=== PATIENT | male | born 1945 | race Two or more races ===

== ENCOUNTER 2020-05-20 23:05 | Inpatient (IN) | payer OTHER ==
[~2020-05-20] VITALS: Ht 170.2 cm; Wt 108.0 kg
[~2020-05-20 23:05] MED LIST: AMLODIPINE BESY10 MG PO; ASPIR-LOW81 MG PO; GLUCOPHAGE500 MG PO; HYDROCHLOROTHIA25 MG PO; LIPITOR40 MG PO; METOPROLOL SUCC25 MG PO; OMEPRAZOLE20 M1 PO; ZESTRIL40 MG PO
[2020-05-20] MEDS ORDERED: PREDNISONE20 MG PO (23:35)
--- NOTE | 2020-05-21 02:30 | NUR ---
0205 PATIENT ARRIVED VIA STRETCHER WITH 2 CORRECTIONAL OFFICERS. PATIENT TRANSFERED TO THE BED WITH MINIMAL ASSISTANCE. RESTRAINTS RELEASED TO PLACE PATIENT IN GOWN. 5 POINT RESTRAINTS REPLACED. PATIENT ON 10L OXYMASK. VS STABLE. O2 SAT 96%. PATIENT DENIES FEELING SOB. SCHEDULED MEDS PROVIDED. IV ABX FINISHED. MAG STARTED PER ORDER, IV FLUIDS INFUSING. IV SITES WNL X2. PATIENT PROVIDED WITH SANITARY ITEMS PER REQUEST. DENIES NEED TO VOID AT THIS TIME. TITRATED TO 6L OXYMASK. PATIENT TOLERATED WELL. CALL LIGHT IN HAND. ALLOWED PATIENT TO REST.
--- NOTE | 2020-05-21 03:29 | NUR ---
PT UP TO BEDSIDE TO VOID 150ML YELLOW URINE. ASSISTED WITH REPOSITIONING IN BED. PERRY ACTIVITY WELL, HR REMAINED 80'S AND SPO2 REMAINED 95% ON 6L/OXYMASK. DENIES PAIN/SOB OR FURTHER NEEDS, CALL LIGHT IN HAND.
--- NOTE | 2020-05-21 04:15 | NUR ---
PATIENT UP TO BEDSIDE TO USE URNAL. PATIENT REMOVED OXYMASK AND DESAT TO LOW 80'S ON ROOM AIR WITH ACTIVITY. PATIENT BACK TO BED. PLACED ON 6L NC AND RECOVERED QUICKLY. PATIENT DENIED FEELING SOB. NO COUGHING NOTED. IV FLUIDS PER ORDER, SITE WNL. PATIENT DENIES FURTHER NEEDS. CALL LIGHT IN REACH.
--- NOTE | 2020-05-21 05:00 | NUR ---
MORNING LABS DRAWN. PATIENT BACK TO OXYMASK 8L WHILE SLEEPING. CALL LIGHT IN REACH.
--- NOTE | 2020-05-21 08:24 | NUR ---
PT AWAKE AND ALERT X4, DENIES PAIN, NAUSEA, AND SOB. PT VITALS ARE WNL. IV SITE IN LEFT WRIST IS INTACT, NO REDNESS OR SWELLING, FLUIDS INFUSE EASILY. IV SITE IN RT AC ACCIDENTALLY PULLED, PT NOT BLEEDING, TIP OF CATH IS INTACT. PT GIVEN CLEAR LIQUID TRAY FOR BREAKFAST. PT DENIES ANY NEEDS AT THIS TIME.
--- NOTE | 2020-05-21 08:31 | NUR ---
PT PLACED ON 5L O2 VIA NASAL CANULA, FROM OXYMASK, FOR EATING BREAKFAST.
[2020-05-21] MEDS ORDERED: COREG6.25 MG PO (09:35)
[2020-05-21] MEDS ORDERED: COZAAR50 MG PO (09:36)
[2020-05-21] MEDS ORDERED: FLOMAX0.4 MG PO (09:37)
--- NOTE | 2020-05-21 10:58 | EKG ---
[facility] [address] [place], [place] [address] Signed Sinus tachycardia with premature atrial complexes Otherwise normal ECG No previous ECGs available Confirmed by MICKEY MCGOVERN DO ([id number]) on 05/21/2020 10:58:16 AM Electronically Signed By: MICKEY MCGOVERN DO 05/21/20 1058 PATIENT NAME: CASSIA GRIJALVA Electrocardiogram DATE OF : 45 PHYSICIAN: MICKEY MCGOVERN DO REPORT #: [id number] REPORT IS CONFIDENTIAL AND NOT TO BE RELEASED WITHOUT AUTHORIZATION
--- NOTE | 2020-05-21 11:50 | NUR ---
PT SWITCHED TO 6L NC FROM 6L OXYMASK FOR LUNCH. PT HAS GOOD APPITITE, DENIES NAUSEA. PT DENIES PAIN AND SOB. PT REPOSITIONED SELF UP IN BED TO EAT MEAL. PT IS ALERT AND ORIENTED X4, COOPERATIVE. CORRECTIONAL RESTRAINTS ASSESSED FOR PT SAFETY AND COMFORT.
--- NOTE | 2020-05-21 12:05 | NUR ---
IV SITE IN LEFT WRIST PAINFUL WITH FLUSH, NO REDNESS OR SWELLING NOTED, DC USE OF THIS SITE AT THIS TIME.
--- NOTE | 2020-05-21 13:35 | NUR ---
PT UP TO THE CHAIR WITH STAND BY ASSIST FOR CORD MANAGEMENT. PT HAS CORRECTIONAL [address], SKIN ASSESSED FOR PT SAFETY AND COMFORT. SKIN INTACT. PT PERRY ACTIVITY WELL, O2 SATS REMAIN AT 89% OR GREATER WITH 5L NC O2 IN PLACE. PT IS ALERT AND ORIENTED X4, VERY HARD OF HEARING. PT HAS CALL LIGHT WITHIN REACH. PT DENIES PAIN, NAUSEA, AND SOB.
--- NOTE | 2020-05-21 15:29 | NUR ---
Medications reconciled with several discrepancies corrected
--- NOTE | 2020-05-21 15:41 | NUR ---
PT REMAINS UP IN CHAIR, O2 SAT IS 91% WITH OXYMASK AT 6L O2. RESP EVEN AND UNLABORED, PT IN NO VISABLE DISTRESS.
--- NOTE | 2020-05-21 16:35 | NUR ---
PT ONE PERSON ASSIST UP FROM CHAIR TO STAND TO VOID, THEN PT ASSISTED BACK TO BED. IV SITE IS INTACT, NO REDNESS OR SWELLING NOTED, FLUID INFUSE EASILY. PT VITALS ARE WNL. OXYMASK IS IN PLACE WITH 6L 02 FLOW. PT DENIES PAIN, NAUSEA, AND SOB. CALL LIGHT IS WITHIN REACH.
--- NOTE | 2020-05-21 17:30 | NUR ---
DINNER DELIVERED TO PT. PT REPOSITIONED UP IN BED, CORRECTIONAL RESTRAINTS ASSESSED FOR PT SAFETY AND COMFORT, SKIN IS INTACT. IV SITE IS INTACT, PT DENIES PAIN AT THE SITE, FLUIDS INFUSE EASILY. PT O2 CHANGED TO 5L VIA NC FROM OXYMASK FOR DINNER TIME.
--- NOTE | 2020-05-21 19:30 | NUR ---
SHIFT REPORT RECEIVED. PATIENT RESTING IN BED WATCHING TV. O2 SATS 92% ON 8L OXYMASK. CALL LIGHT IN REACH.
--- NOTE | 2020-05-21 21:00 | NUR ---
EVENING MEDS PROVIDED PER ORDER. PATIENT REPORTS FEELING WEAK BUT NOT SOB. NO PAIN. ENSURE PROVIDED FOR PROTEIN. PATIENT'S BLOOD GLUCOSE DID NOT REQUIRE COVERAGE. ASSISTED PATIENT TO STAND AT THE BEDSIDE AND VOID. PATIENT POSITIONED ONTO HIS LEFT SIDE. IV ABX STARTED PER ORDER. SITE WNL. PATIENT DENIED FURTHER NEEDS. CALL LIGHT IN REACH.
--- NOTE | 2020-05-21 21:20 | NUR ---
AT 2004 INSULIN GTT CHANGED TO 0.7 PER PROTOCOL. BS 129 AT 2099. HS MEDS GIVEN, NYSTATIN SWISH DONE.
--- NOTE | 2020-05-21 22:30 | NUR ---
PATIENT UP TO THE BEDSIDE TO USE URNAL. REMOVED OXYMASK, DESAY TO LOW 80'S. [facility] STAFF IN TO ASSIST PATIENT. PATIENT RECOVERTED AFTER 2-3 MINS BEING BACK IN BED WITH OXYMASK 6L.
--- NOTE | 2020-05-22 00:30 | NUR ---
PATIENT UP TO BEDSIDE TO VOID. PATIENT TOLERATES WELL. MINIMAL DESAT WHEN OXYMASK LEFT IN PLACE. PATIENT REPORTS FRUSTERATION ABOUT THE RESTRAINTS BUT DENIES PAIN OR SOB. IV SITE WNL, FLUIDS PER ORDER. PATIENT RETURNED TO BED. ENCOURAGED TO LAY ON HIS SIDE.
--- NOTE | 2020-05-22 02:30 | NUR ---
PATIENT'S O2 SATS IN MID TO LOW 80'S. PATIENT TITRATED TO 8L OXYMASK BY ADRIAN TEJEDA.
--- NOTE | 2020-05-22 05:30 | NUR ---
BLOOD CULTURES AND LABS DRAWN. SECOND IV SITE ESTABLISHED. PATIENT TOLERATING 8L WELL, TITRATED TO 6L OXYMASK. IV FLUIDS PER ORDER, SITE WNL. PATIENT VOIDING CLEAR YELLOW URINE. ASSISTED WITH MORNING CARES. DENIED ANY FURTHER NEEDS. CALL LIGHT IN REACH.
--- NOTE | 2020-05-22 07:15 | NUR ---
Report received, orders acknowledged. Patient laying in bed. Oxymask in place at 6L, SpO2 of 95%. RR of 18, HR in the 80's. Two correctional officers sitting outside of room, four-point restraints in place. Call light within reach.
--- NOTE | 2020-05-22 08:00 | NUR ---
ASSESSMENT DONE. UP TO CHAIR FOR BREAKFAST. ACCUCHECK-115. MOVING WELL. O2 VIA OXYMASK AT 8 L. WHEN EATING O2 TO 6 L NC. DENIES SHORTNESS OF BREATH. VOIDING TO URINAL. BED LINEN CHANGED WHILE UP. TALKED WITH PATIENT ABOUT POC FOR DAY. IS UNDERSTANDING. O2 DESAT TO MID 70'S WITH EXERTION. DENEIS SHORTNESS OF BREATH.
--- NOTE | 2020-05-22 09:30 | NUR ---
IVF DC'D PER ORDERS.
--- NOTE | 2020-05-22 12:00 | NUR ---
UP TO CHAIR FOR LUNCH. C/O FEELING VERY WEAK. IS STABLE ON FEET. ASSESSMENT DONE. REMAINS ON OXMASK AT AT 7 L, WHILE EATING O2 IS NC AT 6 L.
--- NOTE | 2020-05-22 13:20 | NUR ---
BACK TO BED.
--- NOTE | 2020-05-22 14:12 | NUR ---
PT ON PREAUTIONS, [facility] GUARDS POSTED OUTSIDE RM. WILL FOLLOW NEEDED
--- NOTE | 2020-05-22 14:52 | NUR ---
PATIENT USED BSC WITH LIMITED ASSIST. BACK TO BED. CALL LIGHT WITHIN REACH. NO FURTHER NEEDS AT THIS TIME.
--- NOTE | 2020-05-22 17:00 | NUR ---
Patient laying in bed watching tv. Oxymask in place at 15L, SpO2 of 98%. Vital signs taken, assessment complete. BG of 97, no insulin given. Dinner delivered. Patient sitting up in bed for meal. Oxygen titrated to 10L NC for meal, SpO2 of 91%. One bank operations officer in room at bedside, five-point restraints in place. Water refreshed, patient denies further needs a this itme. Call light within reach.
--- NOTE | 2020-05-22 18:06 | NUR ---
Patient removed NC, SpO2 drops down to 81%. Patient instructed to put NC back in place while donning PPE. SpO2 climbs to low 90's. Once RN in room, oxymask at 8L put on. SpO2 in the mid-90's. 75% of dinner finished. Patient denies needs at this time, call light within reach.
--- NOTE | 2020-05-22 20:15 | NUR ---
PT AWAKE WATCHING SHOWS ON LAPTOP. STATES IS FEELING MUCH BETTER, NO EPIGASTRIC/ABD DISCOMFORT. BP 144/100, THEN 141/[address] MCGOVERN CALLED AND ORDER FOR 12.5MG METOPROLOL BID RECIEVED.
--- NOTE | 2020-05-22 20:40 | PATH ---
[facility] [address] [place] [address] Signed ORDERING PHYSICIAN: Nelda Adkins MD PATIENT NAME: CASSIA GRIJALVA GENDER: Gisela : 1945 SPECIMEN(S): CLINICAL HISTORY: Routine Pap Smear MOLECULAR PATHOLOGY RESULTS: SARS-CoV-2 DETECTED ADDITIONAL NOTES.: The [place] Fusion SARS-CoV-2 Assay is a multiplex real-time PCR (RT-PCR) in vitro diagnostic test intended for the qualitative detection of RNA from SARS-CoV-2 from individuals who meet COVID-19 clinical and/or epidemiological criteria. In general, SARS-CoV-2 RNA can be detected during the acute phase of infection. Positive results indicate the presence of SARS-CoV-2 RNA. Clinical correlation with patient history and other diagnostic information is necessary to determine patient infection status. Positive results do not rule out bacterial infection or co-infection with other viruses. Negative results do not preclude SARS-CoV-2 infection and should not be used as the sole basis for patient management decisions. Negative results must be combined with other clinical observations, patient history, and epidemiological information. The [place] Fusion SARS-CoV-2 Assay is not yet approved or cleared by the [place] FDA. When there are no FDA-approved or cleared tests available, and other criteria are met, FDA can make tests available under an emergency access mechanism called an Emergency Use Authorization (EUA). The EUA for this test is supported by the [place] of Health and Human Service's (HHS's) declaration that circumstances exist to justify the emergency use of in vitro diagnostics for the detection and/or diagnosis of the virus that causes COVID-19. This EUA will remain in effect for the duration of the COVID-19 declaration justifying emergency of IVDs, unless it is terminated or revoked by FDA, after which the test may no longer be used. The [place] Fusion SARS-CoV-2 Assay is for use only under EUA in US laboratories certified under the Clinical Laboratory Improvement PATIENT NAME: CASSIA GRIJALVA PATHOLOGY DATE OF : 45 REPORT #: [id number] PHYSICIAN: KELLEN MONTERO PCP: ANA NIEVES REPORT IS CONFIDENTIAL AND NOT TO BE RELEASED WITHOUT AUTHORIZATION [facility] [address] [place] [id number] Signed Amendments of 1988 (CLIA) to perform high complexity tests. [facility] is certified under CLIA to perform high complexity clinical laboratory testing. PERFORMING LABORATORY.: Molecular testing was performed by [facility] [address] [place] [address] ([employer]: Michael Payan D.O.; CLIA#: [id number]) Diagnostician: System Interface Pathologist Electronically Signed 05/22/2020 Copies: ~ PATIENT NAME: CASSIA GRIJALVA PATHOLOGY DATE OF : 45 REPORT #: [id number] PHYSICIAN: KELLEN PATHOLOGY PCP: ANA NIEVES REPORT IS CONFIDENTIAL AND NOT TO BE RELEASED WITHOUT AUTHORIZATION
--- NOTE | 2020-05-22 20:44 | NUR ---
SHIFT REPORT RECEIVED FROM NIKHIL UNDERWOOD. ASSESSMENT COMPLETED AT THIS TIME, LIMITED DUE TO PAPR PPE. PT IS ALERT/ORIENTED, DENIES PAIN. 8L O2 VIA OXYMASK IN PLACE, DENIES SOB. HR SINUS PER MONITOR, DENIES CHEST PAIN. DENIES NAUSEA AND ABD PAIN. SKIN GROSSLY INTACT, CMS INTACT. 5-POINT [facility] RESTRAINTS IN PLACE. IV SITES INTACT AND PATENT. URINAL EMPTIED AND FRESH WATER PROVIDED. CB, NO INSULIN COVERAGE REQUIRED. PT DENIES REQUESTS AT THIS TIME. CALL LIGHT WITHIN REACH.
--- NOTE | 2020-05-22 21:52 | NUR ---
ANTIBIOTIC INFUSION COMPLETED, IN TO SALINE LOCK PT'S IV. PT UP TO BSC, HAD LARGE AMOUNT OF SOFT BROWN STOOL AND UNMEASURED VOID. PT ABLE TO PROVIDED HIS OWN PERICARE AND RETURNED TO BED. NO FURTHER REQUESTS OR COMPLAINTS AT THIS TIME.
--- NOTE | 2020-05-22 23:17 | NUR ---
WHILE GETTING OUT OF BED TO USE URINAL, PT INADVERTENTLY DISCONNECTED OXYGEN TUBING FROM THE WALL. IN TO RECONNECT OXYMASK TO OXYGEN AT 8L. ON ROOM AIR, SPO2 DECREASED TO 80%, QUICKLY RETURNED BACK TO >90% ONCE BACK ON 8L. ASSESSMENT COMPLETED, UNCHANGED FROM PREVIOUS. URINAL EMPTIED. PT DENIES REQUESTS OR COMPLAINTS AT THIS TIME.
--- NOTE | 2020-05-23 02:00 | NUR ---
IN TO REPLACE CARDIAC LEADS THAT HAD COME OFF. PT SLEEPING ON RIGHT SIDE, AWOKE WHEN I WAS IN ROOM. DENIES COMPLAINTS AND REQUESTS AT THIS TIME. URINAL EMPTIED. CALL LIGHT WITHIN REACH.
--- NOTE | 2020-05-23 04:10 | NUR ---
ASSESSMENT COMPLETED, UNCHANGED FROM PREVIOUS. PT CONTINUES TO DENY CHEST PAIN AND SOB, 8L O2 VIA OXYMASK REMAINS IN PLACE. PT REPORTS FEELING HOT AND APPEARS SWEATY; AFEBRILE, NEW GOWN PROVIDED PER REQUEST. PT STATES HE IS HAVING A HARD TIME SLEEPING TONIGHT, HE IS UNSURE IF ITS BECAUSE HE IS HOT OR BECAUSE HIS RESTRAINTS ARE UNCOMFORTABLE. ROOM TEMP IS SET LOW IS IT WILL GO, UNABLE TO PROVIDE PERSONAL FAN DUE TO NEGATIVE PRESSURE ROOM. URINAL EMPTIED. PT DENIES REQUESTS AT THIS TIME, CALL LIGHT WITHIN REACH.
--- NOTE | 2020-05-23 06:18 | NUR ---
IN TO REPLACE CARDIAC LEAD THAT HAD COME OFF. DRESSING TO IV IN RIGHT WAS COMING LOOSE, NEW DRESSING PLACED. HAIR PULLED BACK INTO BRAID PER REQUEST. URINAL EMPTIED. BREAKFAST ORDER RECEIVED AND CALLED TO KITCHEN. PT DENIES FURTHER REQUESTS, CALL LIGHT WITHIN REACH.
--- NOTE | 2020-05-23 07:15 | NUR ---
Report received, orders acknowledged. Patient laying in bed with 8L oxymask in place, SpO2 at 96%. Patient in five-point restraints, two correctional officers sitting outside of room. Call light within reach.
--- NOTE | 2020-05-23 08:40 | NUR ---
Spoke with RN for update. Pt resides at [facility] and has two Correctional officers in the room. He is Covid +. Pt is using 8L of 02. [facility].
--- NOTE | 2020-05-23 09:23 | NUR ---
PT LAYING IN BED WITH OXYGEN AT 8L WITH OXYMASK. VITAL SIGNS, ASSESSMENT AND MORNING MEDICATIONS COMPLETED. PT MOVED TO CHAIR TO EAT BREAKFAST, PT HAD NC IN PLACE WITH 8L O2, SAT'S IN MID 90'S. REPLAACED PT BEDDING AND GAVE HIM A NEW BRIEF. ONE OFFICER IN PT ROOM DURING CARE. PT COMPLETED BREAKFAST, OXYMASK BACK ON PT AT 7L O2. SP02 96%. PT DENIES FURTHER NEEDS, CALL LIGHT IN REACH. PT IS A ONE PERSON ASSIST TO CHAIR. [address], TWO OFFICERS STATIONED OUTSIDE OF PT ROOM.
--- NOTE | 2020-05-23 10:10 | NUR ---
REESE SAMPLE COILLECTED, NO COMPLICATIONS, SENT TO [employer]
--- NOTE | 2020-05-23 10:17 | NUR ---
COVID SAMPLE OBTAINED 0800, NO COMPLICATIONS, SENT TO [employer]
--- NOTE | 2020-05-23 10:20 | NUR ---
PT RESTING IN CHAIR. PT ON 7L O2 VIA OXYMASK, SPO2 96%, RESPIRATIONS 17, HR 76. PT WATCHING TV, NO NEEDS AT THIS TIME. PT IN 5 POINT RESTRATINTS. TWO GUARDS STATIONED OUTSIDE OF PT ROOM.
--- NOTE | 2020-05-23 11:45 | NUR ---
Dr. Mishra in room to assess patient and discuss POC
--- NOTE | 2020-05-23 12:00 | NUR ---
PT RESTING IN CHAIR WITH OXYMASK IN PLACE AT 7L 02, PT SP02 IN MID 90'S. VITAL SIGNS TAKEN, ASSESSMENT COMPLETE. BG OF 91, NO INSULIN REQUIRED. PT EATING LUNCH, DENIES PAIN OR NAUSEA. CSM ASSESSED DUE TO RESTRAINTS, LISTENED TO PT LUNGS, NOTED UNDER ASSESSMENTS. STARTED PT REMDESIVIR. STAYED WITH PT WHILE HE WAS IN PRONE POSITION FOR 30 MINUTES, PT TOLERATED WELL. PT VERY COOPERATIVE, VERY RECEPTIVE TO PLAN OF CARE STATING, "I WILL DO ANYTHING YOU THINK WILL HELP". PT RETURNED TO CHAIR AFTER PRONING. LEFT PT TO EAT LUNCH. TWO GUARDS STATIONED OUTSIDE OF PT ROOM, PT IN RESTRAINTS, CALL LIGHT WITHIN REACH.
--- NOTE | 2020-05-23 14:01 | NUR ---
PT SITTING IN CHAIR, 4L NC, SP02 96%, NO NEEDS AT THIS TIME. PT IN 5 POINT RESTRAINTS, TWO GUARDS OUTSIDE PT ROOM.
--- NOTE | 2020-05-23 14:46 | NUR ---
PT [facility], WITH GUARDS AT DOOR. UNABLE TO VISIT DUE TO PRECAUTIONS. WILL FOLLOW ABLE
--- NOTE | 2020-05-23 15:46 | NUR ---
IN PT ROOM, PERFORMED PT CARE VIA BED BATH AND SHOWER CAP. ASSESSED PT CMS, VITAL SIGNS, AND EMPTIED URINAL. ASSISTED PT IN USING IS AND OCCAPELLA, PT HAD A PRODUCTIVE COUGH PRODUCING A SMALL AMOUNT OF BROWN SPUTUM. REPOSITIONED PT FROM THE CHAIR TO PRONE POSITION IN BED. PT OXYGEN SAT WAS 96% ON 4L NC WHILE IN PRONE POSITION UPON LEAVING THE ROOM. GUARD WAS IN PT ROOM DURING CARE. PT LEFT IN PRONE POSITION, CALL LIGHT IN REACH, DENIES NEEDS AT THIS TIME. TWO GUARDS STATIONED OUTSIDE OF PT ROOM.
--- NOTE | 2020-05-23 16:51 | NUR ---
PT RESTING PRONE IN BED. JUST FINISHED USING URINAL. PT 02 92% ON 4L NC. NO NEEDS AT THIS TIME. PT IN RESTRAINTS, TWO GUARDS AT PT DOOR.
--- NOTE | 2020-05-23 18:55 | NUR ---
ASSISTED PT TO THE BED FROM THE CHAIR. PT RESTING ON 4L 02 VIA OXYMASK, SP02 98%, CALL LIGHT IN REACH, NO NEEDS AT THIS TIME. GUARD IN PT ROOM DURING CARE. TWO GUARDS STATIONED OUTSIDE OF PT ROOM.
--- NOTE | 2020-05-23 20:45 | NUR ---
SHIFT REPORT WAS RECEIVED FROM NIKHIL UNDERWOOD AND FARSHAD Perez RN. ASSESSMENT COMPLETED AT THIS TIME, LIMITED DUE TO PAPR PPE. PT IS ALERT/ORIENTED, DENIES PAIN. 4L OXYMASK IN PLACE, PT DENIES SOB. HR SINUS PER MONITOR, DENIES CHEST PAIN. DENIES ABDOMINAL PAIN AND NAUSEA. SKIN GROSSLY INTACT. 5-POINT RESTRAINTS IN PLACE, CMS INTACT. IV INTACT, PATENT, AND SALINE LOCKED. URINAL EMPTIED. CALL LIGHT WITHIN REACH.
--- NOTE | 2020-05-23 21:29 | NUR ---
PT UP TO BSC AT THIS TIME, HAD LARGE AMOUNT OF SOFT STOOL AND UNMEASURED VOID. PT REQUESTS NEW UNDERWEAR, BECAME UPSET WITH VAT TENDER BECAUSE HE HAS USED UP THE UNDERWEAR BROUGHT FOR [facility] FROM [facility]. MESH UNDERWEAR PROVIDED. PT REMAINS APPROPRIATE TOWARD THIS RN. PT ABLE TO PERFORM OWN COSMO-CARE AND RETURNED TO BED.
--- NOTE | 2020-05-24 00:30 | NUR ---
ASSESSMENT COMPLETED, UNCHANGED FROM PREVIOUS. OXYGEN REMAINS AT 4L VIA OXYMASK, PT CONTINUES TO DENY SOB AND CHEST PAIN. CARAMEL CUTTER HAND ADJUSTED RESTRAINTS. URINAL EMPTIED. PT DENIES REQUESTS OR COMPLAINTS AT THIS TIME. CALL LIGHT WITHIN REACH.
--- NOTE | 2020-05-24 02:12 | NUR ---
PT RESTING ON LEFT SIDE IN BED, NO APPARENT DISTRESS. RESPIRATIONS EVEN AND UNLABORED, RR:20, SPO2: 90% ON 4L. WILL ALLOW FOR REST AND CONTINUE TO MONITOR.
--- NOTE | 2020-05-24 03:05 | NUR ---
PT UP TO BSC TO HAVE SMALL AMOUNT OF SOFT STOOL AND UNMEASURED VOID, URINAL ALSO EMPTIED. CARDIAC LEADS REPLACED. PT REPORTS MILD HEADACHE AND LIGHTHEADEDNESS UPON RETURNING TO BED. CBG CHECKED, 123 AT THIS TIME. OFFERED PT TYLENOL FOR ANNE PAIN, BUT PT DECLINED. NO FURTHER REQUESTS, CALL LIGHT WITHIN REACH.
--- NOTE | 2020-05-24 05:05 | NUR ---
ASSESSMENT COMPLETED, NO CHANGES FROM PREVIOUS. REMAIN ON 4L VIA OXYMASK, DENIES CHEST PAIN AND SOB. URINAL EMPTIED, NEW ATTENDS PROVIDED PER REQUEST. LABS DRAWN BY THIS RN, PT TOLERATED WELL. NO FURTHER REQUESTS AT THIS TIME, CALL LIGHT WITHIN REACH.
--- NOTE | 2020-05-24 07:15 | NUR ---
Report received, orders acknowledged. Patient laying on right side in bed, 4L oxymask in place, SpO2 of 94%. RR of 16, HR in the 80's. Two correctional officers sitting outside of room, 5-point restraints in place. Call light within reach.
--- NOTE | 2020-05-24 08:30 | NUR ---
Patient laying in bed with 4L oxymask in place, SpO2 in the mid-90's. Patient sits up at the edge of the bed with 1PA. Vital signs taken, assessment complete. AM medications given. Patient up to chair for meal, 100% of breakfast eaten. Patient wearing 4L NC while eating. Lung sounds auscultated, crackles auscultated bilaterally in the bases. Patient uses IS and acapella, small amount of brown sputum produced. One correctional manager in room at bedside, five-point restraints in place. Warm cloth provided to wash face, new gown provided. Call light within reach.
--- NOTE | 2020-05-24 10:00 | NUR ---
Patient back to bed from chair with 1PA, steady on feet. Patient assisted into proning position, arm restraints released for ease of positioning. Water refreshed, warm blankets provided. Patient denies further needs at this time, call light within reach.
--- NOTE | 2020-05-24 11:10 | NUR ---
Patient laying in bed on left side, 3L NC in place. SpO2 in the mid to upper 90's. HR in the 80's, RR in the low 20's. Two correctional officers sitting outside of room, patient in 2-point restraints. Call light within reach.
--- NOTE | 2020-05-24 12:00 | NUR ---
Patient laying in bed with 3L oxymask in place, SpO2 in the low to mid-90's. Patient assisted up to chair with RN. Vital signs taken. Patient appears lethargic and less talkative as compared to previous assessments earlier in the shift. When questioned, patient denies pain, SOB, or ANNE. This RN notices speech is now hoarse. NIH is performed. Patient has strong licensed loan officer strength equal and bilaterally, as well as strong leg strength that is equal and bilateral. Patient is able to smile. BG of 112. Patient is oriented to person, place, event, date. As assessment continues, patient states "Something's wrong." Then patient becomes less responsive, gazing at the wall. Patient does not respond to RN's attempts to assess patient. After 30 seconds, patient "comes to" and is able to respond to RNs assessment. However, patient continues to appear lethargic. Patient is assisted back to bed with RN assistance. Patient reports feeling "foggy" but denies any disturbances in vision. Dr. Barajas called and notified of change in patient's mental status. PICC line nurse in room to place IV.
--- NOTE | 2020-05-24 12:02 | NUR ---
TALKED WITH PATIENT VIA PHONE. PATIENT IS MORE CALM AFTER RECIEVING ATIVAN 2 MG AT 1055. HOB ELEVATED SLIGHTLY. O2 REMAINS AT 4 L NC. O2 SATS VARY FROM MID 80'S TO MID 90'S.
--- NOTE | 2020-05-24 13:07 | NUR ---
LUNCH HELD WORRIED ABOUT POSSIBLE ASPIRTAION, DECREASED MENTAL STATUS.
--- NOTE | 2020-05-24 13:40 | NUR ---
Dr. Barajas in room to assess patient and discuss POC
--- NOTE | 2020-05-24 13:47 | NUR ---
PICC INSERTION NOTE ORDERS RECIEVED TO EVALUATE CASSIA FOR POSSIBLE PICC INSERTION. AFTER REVIEWING THE CHART AND INTERVIEWING THE PT, NO ABSOLUTE CONTRAINDICATIONS WERE FOUND. RISKS AND COMPLICATIONS OF PICC LINES WERE DISCUSSED AND INFORMED CONSENT WAS SIGNED PRIOR TO THE START OF THE PROCEDURE. THE RIGHT BASILIC VEIN WAS IDENTIFIED WITH YANDY Breaux/Campos AND WAS LARGE ENOUGH TO ACCEPT AN 8FR LINE. A 4 FR LINE IS NEEDED FOR HIS CARE TODAY. CASSIA WILL BENIFIT FROM THIS LINE DUE TO CONTINUED NEED FOR IV THERAPY WELL FREQUENT LAB DRAWS. THERE WERE NO DIFFICULTIES ACCESSING THE VEIN, ADVANCING THE GUIDEWIRE, INTRODUCER, OR PICC. THE PT'S ARM WAS MANIPULATED DURING INSERTION IN ORDER TO GET THE LINE TO DROP. A SINGLE CXR WAS TAKE AND DR MEJIA CLEARED THE LINE FOR USE. CDC RECOMMENDATIONS REGARDING INFECTION PREVENTION AND STERILE TECHNIQUE WERE FOLLOWED FOR THE DURATION OF THE PICC INSERTION AND STERILE DRESSING APPLICATION.
--- NOTE | 2020-05-24 15:15 | NUR ---
RT in room, ABG drawn by this RN under RT supervision. Sample sent to lab. Pressure held for five minutes on arterial site, bandaid applied afterwards. Vital signs taken, I/O's collected. Patient reports "feeling better after my nap." Plan for patient to continue resting in bed. Lights drawn, call light within reach. Five point restraints in place, one correctional officer lieutenant in room at bedside. Patient denies further needs.
--- NOTE | 2020-05-24 17:02 | NUR ---
Patient sleeping in bed on left side, 2L oxymask in place. SpO2 of 94%. HR in the 70's. Five-point restraints in place, two correctional officers outside of room. Call light within reach.
--- NOTE | 2020-05-24 17:30 | NUR ---
Patient laying in bed with 2LNC in place, SpO2 in the low 90's. Vital signs taken, assessment complete. BG of 84, no insulin required. Patient assisted up to chair, steady on feet. Patient oriented to place, self, date, and event. Denies ANNE, SOB, or "feeling foggy." Dinner delivered. New linens provided, new gown given. Patient up commode, BM and urine produced. Patient returns to chair, denies further needs. five-point restraints in place, one animal control officer in room at bedside. Call light within reach.
--- NOTE | 2020-05-24 18:26 | NUR ---
Patient returned to bed with assistance from flight radio officer. 2L oxymask in place, SpO2 of 94%. HR in the 80's, RR in the low 20's. Call light within reach.
--- NOTE | 2020-05-24 21:19 | NUR ---
CALL LIGHT ANSWERED. PT NEEDS TO DEFACATE. SBA TO BSC. SMALL SOFT BOWEL MOVEMENT WITH URINE IN COMMODE. LARGE AMOUNT OF CLEAR YELLOW URINE ON FLOOR PT STATES HE "COULDNT HOLD IT". PT REMOVED OXYMASK FOR TRANSFER AND SPO2 STAYED 88-89% ON RA. PT STATES THIS IS HIS BASELINE AT HOME. OXYMASK REPLACED PT RETURNED TO BED WITH 2L O2. SPO2 94%
--- NOTE | 2020-05-25 00:30 | NUR ---
PATIENT SLEEPING SOUNDLY. TOLERATING 2L NC WITH O2 SATS IN LOW 90'S. RR 20'S. VS STABLE. PATIENT DENIED ANY NEEDS. URNAL EMPTIED. CALL LIGHT IN REACH.
--- NOTE | 2020-05-25 05:30 | NUR ---
PATIENT APPEARED TO BE SLEEPING SOUNDLY. WOKE ONLY TO TOUCH BY RN. PATIENT REPORTS BETTER NIGHT SLEEP THAN PREVIOUS NIGHTS. VS STABLE. MORNING LABS DRAWN, PICC RETURNS BLOOD EASILY AND FLUSHES WELL WITH 20 ML NS. PATIENT PROVIDED WITH WASH CLOTH AND SUPPLIES FOR MORNING CARES. PATIENT DENIED ANY OTHER NEEDS. BREATHING APPEARS EASY AND NONLABORED. PATIENT TOLERATING 2L NC.
--- NOTE | 2020-05-25 07:30 | NUR ---
REPORT RECIEVED FROM DIRECTOR OF SOCIAL MEDIA MARKETING RN. PER REPORT PT IS ON 2L 02 VIA NASAL CANNULA. PICC LINE IN R ARM AND IV IN R HAND. PT IS ABLE TO USE URINAL INDEPENDANTLY AND VITAL SIGNS ARE STABLE. PT IS FROM [facility] AND IN 4 EXTREMITY FLAT SOFT RESTRAINTS.
--- NOTE | 2020-05-25 08:30 | NUR ---
IDT completed with DR. Barajas. She would like CM to work on dc of pt to whichever facility from the custodial system will take him. Pt is now on 2 L of 02. He needs 2 doses of remdisvere and 5 doses of decadron. Pt does not need to remain in CCU for this. Will contact Shanthi GUIDOSASHA.
--- NOTE | 2020-05-25 09:00 | NUR ---
PT ASSESSMENT COMPLETED. UNABLE TO LISTEN TO LUNG OR BOWEL SOUNDS DUE TO PAPR. ALL 4 FLAT RESTRAINTS INTACT. NO SWELLING NOTED. PULESES STRONG. VITALS STABLE. MORNING MEDICATIONS AND BREAKFAST GIVEN. PT IS VERY TALKATIVE, INTERACTING WITH STAFF AND GUARD. PT REMAINS ON 2L O2 AT THIS TIME. WILL TRY TO WEAN APPROPRIATE. IV MEDICATIONS INFUSING THROUGH PICC LINE WITH NO ISSUES. CALL LIGHT WITHIN REACH. WILL CONTINUE TO CLOSELY MONITOR
--- NOTE | 2020-05-25 09:15 | NUR ---
PATIENT SHIFT ASSESSMENT COMPLETED. PATIENT RESTING IN BED AT THIS TIME. UNABLE TO LISTEN TO BREATH SOUNDS, BOWEL TONES, AND HEART TONES D/T PAPR EQUIPMENT. PATIENT STATES "I FEEL MUCH BETTER, I THINK THAT MEDICATION IS WORKING". PATIENT IS VERY TALKATIVE WITH STAFF THIS AM. NEW GRAD STUDENT IS IN TAKING CARE OF PATIENT WITH THIS NURSES OBSERVATIONS AND INSTRUCTIONS. MEDICATIONS GIVEN. BREAKFAST AT THE BEDSIDE. NO OTHER NEEDS AT THIS TIME. WILL CONTINUE TO CLOSELY MONITOR.
--- NOTE | 2020-05-25 09:20 | NUR ---
Spoke with Jace and she will call the [facility] and check for transportation, oxygen for transport, if staff can give Remdisavere and Decadron. She has a phone conference with [facility] at 12n and will give an update following the call.
--- NOTE | 2020-05-25 11:24 | NUR ---
PT IS AWAKE AND ORIENTED RESTING ON RIGHT SIDE. INFUSION COMPLETE, PICC LINE HEPARIN LOCKED. ALL 4 FLAT SOFT RESTRAINTS INTACT. VITAL SIGNS STABLE. LUNCH ORDERED. CALL LIGHT IN REACH. WILL CONTINUE TO MONITOR.
--- NOTE | 2020-05-25 12:31 | NUR ---
ASSISTED PT TO STAND UP TO USE THE URINAL AND TRANSFER TO SIT IN CHAIR. PT TOLERATED WELL. BLOOD SUGAR WNL. LUNCH PROVIDED. CALL LIGHT WITHIN REACH. PT ADVISED TO CALL WHEN HE IS READY TO TRANSFER BACK TO THE BED. WILL CONTINUE TO MONITOR.
--- NOTE | 2020-05-25 12:57 | NUR ---
IN TO DO PATIENTS MEDICATIONS AND GET PATIENT HIS LUNCH. PATIENT ABLE TO STAND AND URINATE AND AMBULATE TO THE CHAIR. PATIENT TOELRATED WELL AND NOW EATING LUNCH. NO OTHER NEEDS AT THIS TIME. WILL CONTINUE TO CLOSELY MONITOR.
--- NOTE | 2020-05-25 13:00 | NUR ---
Call from [facility]. She will arrange transport and oxygen. Their staff can give the meds IV. She is waiting to hear if pt will go to [place] or [place] as [facility] cannot take any more pt's at this time. Possible dc today, but more likely tomorrow to allow time for arrangements.
--- NOTE | 2020-05-25 13:51 | NUR ---
PT ON PRECAUTIONS, [facility] GUARDS OUTSIDE DOOR. WILL FOLLOW NEEDED
--- NOTE | 2020-05-25 14:39 | NUR ---
PT ALERT AND ORIENTED CHATTED WITH GUARDS AND STAFF. ASSISTED UP TO BATHROOM. TRANSFERED BACK TO BED. TOLERATED WELL. INCENTIVE SPIROMETER USED. PROVIDED FRESH UNDERWEAR AND NEW DRAWSHEET. VITAL SIGNS STABLE. MD IN WITH PT. WILL CONTINUE TO MONITOR.
--- NOTE | 2020-05-25 14:50 | NUR ---
Notified by Dr. Barajas there has been a possible security breech. She would like pt discharged to [facility]. Called and spoke with Edward at [facility]. She will work on this as we were planning on dc to [place] tomorrow. I spoke with correctional officers and was given their Captains phone, Captian Shilpa [phone]. He spoke with person and does not feel there was any information given. He does state if there is any concern the patient can be returned today. Spoke with Dr. Barajas and she would like the pt to dc today if possible.
[2020-05-25] MEDS ORDERED: ACETAMINOPHEN500 MG PO (15:01)
[2020-05-25] MEDS ORDERED: DEXAMETHAS10 MG/1 M1 IV (15:02)
[2020-05-25] MEDS ORDERED: REMDESIVIR100 MG/20 IV (15:03)
--- NOTE | 2020-05-25 15:10 | NUR ---
[facility] WHILE THIS RN ON LUNCH. UPDATED THAT STAFF WOULD CALL THEM BACK PER OUR POLICY/PROTOCOLS. [facility] NURSE THEN CALLED AGAIN AND INSTRUCTED WE WOULD CALL THEM BACK. THIS RN CALLED [facility] NUMBER TO [facility] NURSE BASHIR. [facility] RN ASKED STAFF IF FAMILY HAS CALLED AND WAS GIVEN UPDATES. UPDATED THAT PER OUR POLICY WE ARE NOT ALLOWED TO GIVE UPDATES TO ANYONE EXCEPT THE RNS AT [facility] AND TO EVEN DO THAT WE HAVE TO HANG UP WHEN THEY CALL AND CALL THE [facility] NUMBER WE HAVE AVAILABLE. PER NURSE MCKAY HE STATED "THIS IS NOT TRUE THAT FAMILY CAN BE UPDATED AND IF THEY CALL WE CAN GIVE THEM UPDATES" HE ALSO SAID "I JUST WENT THROUGH THIS SAME THING WITH STAFF AT [facility]". VIKTOR TEJEDA DIP PAINTER IN THE UNIT AND OVERHEARD CONVERSATION VERIFIED WITH DIP PAINTER OF OUR POLICY AND PROCEDURE AND FAMILY IS NOT ALLOWED TO KNOW THE PATIENTS WHEREABOUTS AND CAN NOT HAVE UPDATES FROM OUR STAFF. VIKTOR TEJEDA SPOKE WITH THE CORRECTIONAL OFFICERS HERE AND THEY CALLED LT. DUBOSE TO CONFIRM IF POLICIES HAVE CHANGED. MCKAY TEJEDA REQUESTED AN UPDATE SO THAT HE COULD CALL UPDATE THE FAMILY. UPDATED THAT UNTIL LT. DUBOSE CONFIRMS CURRENT POLICIES AND PROCEDURES, WE CAN NOT GIVE UPDATES AT THIS TIME. MD MOSES AND AIRPORT DRIVER NOTIFIED OF SITUATION.
--- NOTE | 2020-05-25 15:30 | NUR ---
Call from Shanthi, she is working with [employer] and asks I call Haley Rivera at [phone]. Attempted to call x 2 and left a message.
--- NOTE | 2020-05-25 15:40 | NUR ---
Spoke with Haley and she is arranging pt's return. DC summary faxed with RX. Phone number for Karl Benito given so they can set up for medications pt. will need.
--- NOTE | 2020-05-25 15:51 | NUR ---
MD MOSES WAS IN TO SEE PATIENT. TUBE INSPECTOR HAS BEEN WORKING ON DISCHARGE FOR PATIENT TO GO BACK TO THE FACILITY SINCE THE AM JUST IN CASE PATIENT COULD BE DISCHARGED. PER MD MOSES SHE WILL WRITE FOR DISCHARGE ORDERES AND TUBE INSPECTOR WILL CONTINUE TO ARRANGE DISCHARGE FOR PATIENT.
--- NOTE | 2020-05-25 16:10 | NUR ---
Notified by Haley she received orders and she is calling [facility] for transport as they require all pts on to transport per ambulance. Orders and RX placed in envelope and given to Lyly TEJDEA in CCU for transport.
--- NOTE | 2020-05-25 17:10 | NUR ---
Notified by CCu RN when she reported to [facility] nurse, they do not have supplies for PICC line. Called and spoke with Haley Rivera as she was just here to picker operator meds. She states she has an errand and will return for PICC line supplies. RX completed by Dr. Barajas for Heparin and bag readied with 5 heparin flushes, 15 saline flushed, PICC line dressing kit, and prescription.
--- NOTE | 2020-05-25 17:15 | NUR ---
CALLED REPORT TO NURSE WHITMAN AT [facility]. PATIENT DISCHARGED AND IS GOING BACK TO THE FACILITY WITH EMS TRANSPORT. ALL BELONGINGS GATHERED AND SENT WITH STAFF. PATIENT ASSISTED ONTO STRETCHER. PATIENT WILL BE TRANSFERED TO THE [facility] AND WILL CONTINUE TO RECIEVE IV MEDICATIONS THROUGH PICC LINE AND OXYGEN PER ORDERS. VICE PRESIDENT CONSULTING SERVICES HAS BEEN WORKING WITH [facility] CLAY PROCESSING FACTORY WORKER AND DISCHARGE PLAN. ALL QUESTIONS ANSWERED. WILL FOLLOW-UP WITH MD MOSES ABOUT A HEPARIN ORDER AND DRESSING CHANGES. NO OTHER NEEDS AT THIS TIME.
--- NOTE | 2020-05-25 17:20 | NUR ---
PATIENT LEFT WITH EMS STAFF AND GARDS AT THE SIDE. ALL BELONGINGS SENT WITH PATIENT. ALL QUESTIONS ANSWERED. NO OTHER NEEDS AT THIS TIME. WILL CONTINUE TO CLSOELY MONITOR.
--- NOTE | 2020-05-25 17:45 | NUR ---
CALLED SHRADDHA WHITMAN AND UPDATED THAT A FAX WAS SENT FOR HEPARIN AND HER DIRECTOR WILL BE BACK TO HAUNTED HISTORY TOUR GUIDE PICCLINE SUPPLIES AND PRINTED DOCUMENTATION ON PICC LINE CARE. NO OTHER QUESTIONS AT THIS TIME.
--- NOTE | 2020-05-25 18:12 | NUR ---
Haley returned and bag given with supplies.
== END 2020-05-25 17:05 | disposition home or self-care (01) | DRG 177 ==
LOC: ED 23:05 → CCU 05-21 01:41
PROVIDERS: ADMIT Student in an Organized Health Care Education/Training Program
PROC: 02HV33Z Insertion of Infusion Device into Superior Vena Cava, Percutaneous Approach (ICD-10-PCS; principal; 2020-05-24 13:00)
DX: U07.1 COVID-19 (principal); J12.89 Other viral pneumonia; J96.01 Acute respiratory failure with hypoxia; I12.9 Hypertensive chronic kidney disease with stage 1 through stage 4 chronic kidney disease, or unspecified chronic kidney disease; E11.22 Type 2 diabetes mellitus with diabetic chronic kidney disease; N18.9 Chronic kidney disease, unspecified; K21.9 Gastro-esophageal reflux disease without esophagitis; I51.7 Cardiomegaly; K44.9 Diaphragmatic hernia without obstruction or gangrene; H91.90 Unspecified hearing loss, unspecified ear; I25.10 Atherosclerotic heart disease of native coronary artery without angina pectoris; E78.5 Hyperlipidemia, unspecified; Z87.891 Personal history of nicotine dependence; Z79.84 Long term (current) use of oral hypoglycemic drugs; Z79.82 Long term (current) use of aspirin; Z79.52 Long term (current) use of systemic steroids; Z79.899 Other long term (current) drug therapy
CPT/HCPCS: 36569; 36600; 71045; 80048; 80053; 81001; 82803; 83605; 83735; 83880; 84484; 85025; 85379; 87070; 87205; 93005; 93010; 96361; 96365; 96368; 99285-25; C1751; C9803; J0456; J0696; J1100; J1650; J1815; J3475; J7030; J7050; J7060; J7121

== ENCOUNTER 2020-05-28 11:02 | Emergency (ER) | payer OTHER ==
[~2020-05-28] VITALS: Ht 170.2 cm; Wt 95.2 kg
[~2020-05-28 11:02] MED LIST changes: +ACETAMINOPHEN500 MG PO; +COREG6.25 MG PO; +COZAAR50 MG PO; +DEXAMETHAS10 MG/1 M1 IV; +FLOMAX0.4 MG PO; +PREDNISONE20 MG PO; +REMDESIVIR100 MG/20 IV
--- OUTSIDE RECORDS SUMMARY | 2020-05-28 11:06 | XMS ---
PreManage Notification: CASSIA GRIJALVA Security Clinical Asst Events No recent Security Events currently on file CRITERIA MET - [facility] - 2 Visits in 30 Days CARE PROVIDERS There are no care providers on record at this time. Tiffany has no Care Guidelines for this patient. Irma VISIT COUNT (12 MO.) [address] [facility] TOTAL 2 NOTE: Visits indicate total known visits. ED/C VISIT TRACKING (12 MO.) 05/28/2020 11:04 [facility] TYPE: Emergency COMPLAINT: - FLU SYMPTOMS 05/20/2020 23:06 [facility] TYPE: Emergency COMPLAINT: - LOW OXYGEN INPATIENT VISIT TRACKING (12 MO.) 05/21/2020 01:41 [facility] TYPE: Critical Care COMPLAINT: - HYPOXIA,POSSIBLE COVID DIAGNOSES: - Atherosclerotic heart disease of [place] coronary artery witho - Pneumonia, unspecified organism - Other emt intermediate (current) drug therapy - termite treater helper (current) use of systemic steroids - Unspecified hearing loss, unspecified ear - Chronic kidney disease, unspecified - 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
== END 2020-05-28 13:39 | disposition home or self-care (01) ==
LOC: ED 11:02
DX: U07.1 COVID-19 (principal); J12.89 Other viral pneumonia; I10 Essential (primary) hypertension; K21.9 Gastro-esophageal reflux disease without esophagitis; Z87.891 Personal history of nicotine dependence; Z79.899 Other long term (current) drug therapy
CPT/HCPCS: 71045; 80053; 85025; 99285